=== PATIENT | male | born 2000 | race Caucasian/White ===

== ENCOUNTER 2019-06-12 23:55 | Emergency (ER) | payer BC, SELFPAY ==
[2019-06-12 23:55] VITALS: BP 151/93; PULSE 104; RESP 18; TEMP 36.6; O2SAT 96; BMI 37.8
--- NOTE | 2019-06-13 00:14 | ED.VIS.GEN ---
History of Present Illness Chief Complaint: Nausea/Vomiting Informant: Patient Onset: Today Narrative: He had a gradual onset of abdominal pain over the last 2-1/2 hours. Is in the periumbilical epigastric area. He had nausea and vomited 5 times in one session. He stated the last session had a little bit of mild bleeding in it. No further vomiting. This happened approximately an hour ago. He denies any diarrhea. No sick contacts. He is never had this before. He does drink alcohol. He drinks every 1 to 2 days per patient. He varies from 1-2 drinks to 8 drinks at the time. Does not feel like he is an alcoholic. No fevers or chills. Previous abdominal surgeries include hernia only. Current severity is mild. Feels better after he vomited. Describes it as a sharp pain. Denies any blood thinners. Past Medical History - Allergies and Home Meds Allergies/Adverse Reactions: Allergies No Known Allergies Allergy (Verified 06/12/19 23:56) Primary Care Physician: [facility],Out of [NON-STAFF] - Prior records reviewed: Yes Past Medical History: - - Reviewed Surgical History: - - Hernia Smoking Status: Former smoker Alcohol: Occasional Drugs: None Review of Systems General: Denies: Chills, Fever, Sweats Eyes: Denies: Visual changes - bilaterally, Diplopia ENT: Denies: Rhinorrhea, Sore throat Cardiovascular: Denies: Chest pain, Palpitations Respiratory: Denies: Dyspnea, Cough, Dyspnea on exertion Gastrointestinal: Reports: Abdominal pain, Nausea, Vomiting. Denies: Diarrhea, Melena, Hematochezia Genitourinary: Denies: Dysuria, Hematuria, Frequency Musculoskeletal: Denies: Back pain, Extremity Pain Skin: Denies: Rash, Wounds Neurological: Denies: Headache, Weakness, Numbness Physical Exam Vital Signs/Narrative: Vital Signs Temp Pulse Resp BP Pulse Ox 06/12/19 23:55 98 F 104 H 18 151/93 H 96 General: Well nourished, Well developed, No Acute Distress Head: Normocephalic, Atraumatic Eyes: Perrl, EOMI ENT: Moist mucous membranes, No rhinorrhea Neck: Supple, Nontender Cardiovascular: Regular rate, Regular rhythm, No murmurs Respiratory: No distress, CTA bilaterally, Chest nontender Abdomen: Soft, Nondistended, Normal bowel sounds, Tender - Tender periumbilical and epigastric.. Negative for: Guarding, Rebound tenderness Back: Nontender, Normal Inspection Extremities: Nontender, No edema Skin: Normal color, No rash Neurological: Alert, Oriented x3, Cranial nerves II-XII grossly intact, Normal Strength, Normal Sensation Psychological: Normal affect, Normal Mood Diagnostic/Tx/Re-eval Laboratory Tests 06/13/19 06/13/19 06/13/19 Range/Units 00:04 00:04 00:04 WBC 13.4 H (4.4-11.0) K/mm3 RBC 5.87 (4.6-6.2) M/mm3 Hgb 18.5 H* (13.0-16.5) g/dL Hct 52.6 (40-54) % MCV 89.6 (80-94) fL MCH 31.5 (27.0-32.0) pg MCHC 35.2 (32-36) g/dL RDW Std Deviation 39.6 (35.1-43.9) fl RDW Coeff of Loulou 12.0 (11.6-14.6) % Plt Count 257 (150-450) K/mm3 MPV 9.4 (6.2-12.0) fl Immature Gran % (Auto) 0.600 (0.0-0.9) % Neut % (Auto) 76.1 H (47-70) % Lymph % (Auto) 16.2 L (19-41) % [place] % (Auto) 6.1 (0-10) % Eos % (Auto) 0.7 (0-5) % Baso % (Auto) 0.3 (0-1) % Absolute Neuts (auto) 10.2 H (2.0-7.7) X10^3/uL Absolute Lymphs (auto) 2.18 (0.83-4.51) X10^3/uL Nucleated RBC % 0 (0-5) % Diff Path Review May foll Sodium 139 (136-145) mmol/L Potassium 3.9 (3.5-5.1) mmol/L Chloride 108 H (98-107) mmol/L Carbon Dioxide 23.0 (21.0-32.0) mmol/L Anion Gap 8 (5-15) BUN 18 (7-18) mg/dL Creatinine 1.39 H (0.70-1.30) mg/dL Estim Creat Clear Calc 100.47 ml/min Est GFR (MDRD) Af Amer 83 (>60) mL/min Est GFR (MDRD) Non-Af 68 (>60) mL/min BUN/Creatinine Ratio 12.9 (10-20) RATIO Glucose 110 H (74-106) mg/dL Calcium 9.2 (8.5-10.1) mg/dL Total Bilirubin 0.80 (0.20-1.00) mg/dL AST 26 (15-37) U/L ALT 29 (16-61) U/L Alkaline Phosphatase 82 (45-117) U/L Total Protein 8.1 (6.4-8.2) g/dL Albumin 4.3 (3.2-5.0) g/dL Globulin 3.8 (2.2-4.2) g/dL Albumin/Globulin Ratio 1.1 (0.9-2.4) RATIO Lipase 170 (73-393) U/L - Medical Decision Making IV established given IV fluids Zofran Toradol. Lab work obtained. I suspect the patient had a small Marjorie-De La Fuente tear from retching. Patient felt much better after 2 L of fluid. Lab work shows a hemoglobin 18.4. White count is 13.5. Creatinine is slightly elevated. Lipase negative. Liver function test negative. I feel this is likely secondary to prerenal azotemia and dehydration. The patient stated later that he drank a lot of alcohol last night and suspect that he is dehydrated. He stated his urine is dark. On reevaluation his abdominal exam is completely benign. He has no pain on palpation. There is no pain over his appendix. He is nontoxic. I feel that he can be discharged. He will follow-up as an outpatient. Given a prescription for Zofran. Will use Tylenol as needed. Do not feel he has an acute abdomen. ED Disposition - Plan for ED Patient: Disposition: Home or Assisted Living Diagnosis: Abdominal pain, Nausea and vomiting, Dehydration Instructions: VOMITING (4y-Adult) Prescriptions: Ondansetron [Zofran Odt] 4 mg PO Q8H PRN PRN #10 tab PRN Reason: Nausea Prescription Printed Referrals: [facility],Out of [NON-STAFF] -
[2019-06-13 00:21] LABS: Absolute Lymphocyte Count 2.18 X10^3/uL (0.83-4.51); Absolute Neutrophil Count 10.2 X10^3/uL (2.0-7.7); Basophil# 0.04 X10^3/uL; Basophil% 0.3 % (0-1); Eosinophil# 0.09 X10^3/uL; Eosinophils% 0.7 % (0-5); Hematocrit 52.6 % (40-54); Hemoglobin 18.5 g/dL (13.0-16.5); Lymphocyte # 2.18 X10^3/ul (4.0); Lymphocyte % 16.2 % (19-41); Mean Corp Hgb Conc 35.2 g/dL (32-36); Mean Corpuscular Hgb 31.5 pg (27.0-32.0); Mean Corpuscular Volume 89.6 fL (80-94); Mean Platelet Vol. 9.4 fl (6.2-12.0); Monocyte# 0.82 X10^3/uL; Monocyte% 6.1 % (0-10); NRBC Flagged by Analyzer 0 % (0-5); Neutrophil # 10.22 X10^3/uL (2.7-7.7); Neutrophil % 76.1 % (47-70); Platelet Count 257 K/mm3 (150-450); RBC Distribution Width SD 39.6 fl (35.1-43.9); Red Blood Count 5.87 M/mm3 (4.6-6.2); White Blood Count 13.4 K/mm3 (4.4-11.0)
[2019-06-13] MEDS: 0.9% Normal Saline 1,000 ML 1000 ML IV ×2 (00:21→00:59)
[2019-06-13] MEDS: Ketorolac 30 MG/ML Syringe IV (00:21)
[2019-06-13] MEDS: Ondansetron 4 MG/2 ML Vial IV (00:22)
[2019-06-13 00:33] LABS: ALB/GLOB Ratio 1.1 RATIO (0.9-2.4); AST(SGOT) 26 U/L (15-37); Alanine Aminotransfer ALT/SGPT 29 U/L (16-61); Albumin, Serum 4.3 g/dL (3.2-5.0); Alkaline Phosphatase 82 U/L (45-117); Anion Gap 8 (5-15); BUN 18 mg/dL (7-18); BUN/Creat Ratio 12.9 RATIO (10-20); Calcium,Total 9.2 mg/dL (8.5-10.1); Chloride 108 mmol/L (98-107); Creatinine, Serum 1.39 mg/dL (0.70-1.30); EST Glomerular Filtration Rate 68 mL/min (>60); Est Glom Filt Rate - Afr Amer 83 mL/min (>60); Estimated Creatinine Clearance 100.47 ml/min; Globulin 3.8 g/dL (2.2-4.2); Glucose 110 mg/dL (74-106); Potassium 3.9 mmol/L (3.5-5.1); Protein, Total 8.1 g/dL (6.4-8.2); Sodium Level 139 mmol/L (136-145)
--- NOTE | 2019-06-13 00:41 | ED.RN ---
DR SPICER NOTIFIED OF HGB RESULTS
[2019-06-13 01:02] LABS: Lipase 170 U/L (73-393)
[2019-06-13 01:57] VITALS: RESP 16
[2019-06-13 12:33] LABS: Pathologist Review Reviewed
== END 2019-06-13 02:01 | disposition home or self-care (01) ==
PROVIDERS: Emergency Provider Emergency Medicine
DX: E86.0 Dehydration (principal); R10.13 Epigastric pain; R10.33 Periumbilical pain; R11.2 Nausea with vomiting, unspecified; F10.99 Alcohol use, unspecified with unspecified alcohol-induced disorder; Z87.891 Personal history of nicotine dependence
CPT/HCPCS: 80053; 83690; 85025; 96361; 96374; 96375; 99283; J7030; A4216; J2405